=== PATIENT | female | born 2000 | race Caucasian/White ===

== ENCOUNTER → 2023-11-26 09:36 | Outpatient (BNVA) | payer BC, SELFPAY | PROVIDERS: Visit Provider Nurse Practitioner Women's Health | DX: Z34.90 Encounter for supervision of normal pregnancy, unspecified, unspecified trimester | CPT/HCPCS: 80307; 81025; 84315; 84702; 87086 ==

== ENCOUNTER → 2023-11-28 07:59 | Outpatient (BNVA) | payer BC, SELFPAY | PROVIDERS: Visit Provider Obstetrics & Gynecology | DX: Z32.01 Encounter for pregnancy test, result positive (principal) | CPT/HCPCS: 84702; 87086 ==

== ENCOUNTER → 2023-12-03 09:05 | Outpatient (BNVA) | payer OTHER, SELFPAY | PROVIDERS: Visit Provider Obstetrics & Gynecology | DX: Z36.87 Encounter for antenatal screening for uncertain dates (principal) | CPT/HCPCS: 76817 ==

== ENCOUNTER → 2023-12-31 11:01 | Outpatient (BNVA) | payer OTHER, SELFPAY | PROVIDERS: Visit Provider Obstetrics & Gynecology | DX: Z3A.01 Less than 8 weeks gestation of pregnancy (principal); Z34.90 Encounter for supervision of normal pregnancy, unspecified, unspecified trimester | CPT/HCPCS: 80307; 84315; 85025; 86592; 86762; 86803; 86850; 86900; 87086; 87340; 87491; 87591; 87806 ==

== ENCOUNTER → 2024-02-18 07:52 | Outpatient (BNVA) | payer OTHER, SELFPAY | PROVIDERS: Visit Provider Nurse Practitioner Women's Health | DX: Z3A.01 Less than 8 weeks gestation of pregnancy (principal); K21.9 Gastro-esophageal reflux disease without esophagitis; Z34.91 Encounter for supervision of normal pregnancy, unspecified, first trimester | CPT/HCPCS: 82105; 84315 ==

== ENCOUNTER → 2024-03-19 11:46 | Outpatient (BNVA) | payer OTHER, SELFPAY | PROVIDERS: Visit Provider Obstetrics & Gynecology | DX: Z34.92 Encounter for supervision of normal pregnancy, unspecified, second trimester (principal) | CPT/HCPCS: 76805 ==

== ENCOUNTER → 2024-04-29 09:31 | Outpatient (BNVA) | payer OTHER, SELFPAY | PROVIDERS: Visit Provider Obstetrics & Gynecology | DX: Z34.92 Encounter for supervision of normal pregnancy, unspecified, second trimester (principal) | CPT/HCPCS: 76816 ==

== ENCOUNTER → 2024-05-05 07:54 | Outpatient (BNVA) | payer OTHER, SELFPAY | PROVIDERS: Visit Provider Obstetrics & Gynecology | DX: Z34.90 Encounter for supervision of normal pregnancy, unspecified, unspecified trimester (principal) | CPT/HCPCS: 82950; 84315 ==

== ENCOUNTER → 2024-06-01 08:18 | Outpatient (BNVA) | payer OTHER, SELFPAY | PROVIDERS: Visit Provider Obstetrics & Gynecology | DX: Z34.93 Encounter for supervision of normal pregnancy, unspecified, third trimester (principal) | CPT/HCPCS: 81000 ==

== ENCOUNTER 2024-06-19 19:04 | Outpatient (CLI) | payer OTHER, SELFPAY ==
[2024-06-19] VITALS (10 sets, daily range): BP systolic 129–146; BP diastolic 72–80; PULSE 68–88; BMI 39.3
[2024-06-19 19:44] LABS: Bilirubin Urine Negative (Negative); Blood Urine 3+ (Negative); Glucose Urine UA Trace (Normal); Ketones Urine 1+ (Negative); Leukocyte Esterase Urine 1+ (Negative); Nitrate Urine Negative (Negative); Protein Urine 1+ (Negative); Specific Gravity, Urine 1.019 (1.005-1.030); Urine Appearance Turbid (CLEAR); Urine Color Yellow (Yellow); pH Urine 6.5 (5-7)
[2024-06-19 19:49] LABS: Bacteria Urine 4+ /hpf; RBC Urine >100 /hpf (0-2); Squamous Epithelial Cell Urine 21-50 /hpf (0-5); WBC Urine 21-50 /hpf (0-5)
[2024-06-19 20:15] LABS: Hyaline Casts Urine 7.42 /lpf
[2024-06-19 20:26] LABS: Basophils # 0.1 10^3/uL (0.0-0.1); Basophils % 0.3 %; Eosinophils % 0.1 %; Hematocrit 32.2 % (36-47); Lymphocytes # 1.9 10^3/uL (0.8-4.8); Lymphocytes % 11.7 %; Mean Corpuscular HGB Conc 31.4 g/dL (30-55); Mean Corpuscular Hemoglobin 24.8 pg (27-33); Mean Corpuscular Volume 78.9 fl (85-98); Mean Platelet Volume 11.4 fL (7.4-10.4); Monocytes % 6.3 %; Neutrophils # 12.86 10^3/uL (1.8-7.7); Neutrophils % 80.8 %; Nucleated Red Blood Cells % 0 %; Platelet Count 216 10^3/cmm (157-399); Red Blood Count 4.08 10^6/uL (3.85-5.65); Red Cell Distribution Width 13.8 % (12.1-15.1); White Blood Count 15.93 10^3/uL (3.29-11.43)
[2024-06-19] MEDS: lactated ringers 1,000 ML 125 ML IV (20:42)
[2024-06-19] MEDS: ceFAZolin 2,000 mg SDV 2000 MG IVP (20:42)
[2024-06-19] MEDS: acetaminophen 325 mg Tablet 650 MG PO (20:47)
[2024-06-19 20:49] LABS: Alanine Aminotransferase 17 U/L (0-33); Albumin Level 3.3 g/dL (3.5-5.2); Alkaline Phosphatase 193 U/L (35-105); Anion Gap 17.1 (5-19); Aspartate Amino Transferase 14 U/L (0-32); Blood Urea Nitrogen 4 mg/dL (6-20); Calcium 8.6 mg/dL (8.5-10.5); Carbon Dioxide 19 mmol/L (22-29); Chloride 103 mmol/L (98-107); Globulin 3.3 g/dL (1.3-4.6); Glomerular Filtration Rate 199.6 mL/min (90-130); Glucose 95 mg/dL (65-115); Osmolality Calculated 279 mOsm/kg (285-295); Potassium 3.1 mmol/L (3.5-5.1); Sodium 136 mmol/L (136-145); Total Bilirubin 0.3 mg/dL (0.15-1.2); Total Protein 6.6 g/dL (6.6-8.7)
[2024-06-20] MEDS: ceFAZolin 1,000 mg SDV 1000 MG IVP ×2 (00:42→06:48)
[2024-06-20 00:44] VITALS: BP 102/50; PULSE 100
[2024-06-20] MEDS: acetaminophen 325 mg Tablet 650 MG PO (04:32)
[2024-06-20] MEDS: lactated ringers 1,000 ML 125 ML IV (04:32)
--- NOTE | 2024-06-20 07:00 | USR_ITS ---
PROCEDURE INFORMATION: Exam: US Retroperitoneal, Complete, Kidneys and Bladder Exam date and time: 06/20/2024 8:32 AM Age: 23 years old Clinical indication: Abdominal pain; Flank; Right; ; Additional info: Right flank pain, possible renal stone TECHNIQUE: Imaging protocol: Real-time ultrasound of the retroperitoneum with image documentation. Complete exam focused on the bilateral kidneys and urinary bladder. COMPARISON: [place] [id number] 04/29/2024 9:35 AM FINDINGS: Right kidney: Measures 11.6 cm in length. Moderate hydronephrosis with couple ovoid hyperechoic foci at the calices suggestive of stones measuring up to 1.4 cm. Left kidney: Measures 11.8 cm in length. Mild hydronephrosis. No hyperechoic stones. Urinary bladder: Unremarkable as visualized. Aorta: Interrogated aorta shows normal caliber. Gestation: Partial visualization of intrauterine gestation with vertex presentation. US/US renal BI* [id number] IMPRESSION: 1. Moderate right hydronephrosis with couple hyperechoic foci at the calices suggestive of stones. 2. Mild left hydronephrosis without visualized hyperechoic stones.
--- NOTE | 2024-06-20 08:15 | PM.OBTRLD ---
OB L&D Triage Visit Information: Date of evaluation: 06/20/24 Comments/Additional reason(s) for visit: cramping and low back pain 23yo female at 34.6 wk IUP ROBERTO 07/26/24 OBS on LD for UTI and treated with several doses of IV(Ancef) antibiotic, after episode of vomiting. Pt c/o low back pain (Left CVA) tenderness resolved. EFM-Cat 1. Discussed need to increase fluids and to take PO Meds til gone. Evaluation: Baseline heart rate: 130 monitor accelerations: Present 15x15 monitor decelerations: None Laboratory results: Laboratory Tests 06/19/24 06/19/24 19:23 20:10 WBC 15.93 H RBC 4.08 Hgb 10.10 L Hct 32.2 L MCV 78.9 L MCH 24.8 L MCHC 31.4 RDW 13.8 Plt Count 216 MPV 11.4 H Neut % (Auto) 80.8 Lymph % (Auto) 11.7 [place] % (Auto) 6.3 Eos % (Auto) 0.1 Baso % (Auto) 0.3 Neut # (Auto) 12.86 H Lymph # (Auto) 1.9 [place] # (Auto) 1.0 H Eos # (Auto) 0.0 Baso # (Auto) 0.1 Nucleated RBC % (a uto) 0 Nucleated RBCs # 0.0 Sodium 136 Potassium 3.1 L Chloride 103 Carbon Dioxide 19 L Anion Gap 17.1 BUN 4 L Creatinine 0.4 L GFR Calculation 199.6 H Glucose 95 Calculated Osmolal ity 279 L Calcium 8.6 Total Bilirubin 0.3 AST 14 ALT 17 Alkaline Phosphata se 193 H Total Protein 6.6 Albumin 3.3 L Globulin 3.3 Urine Color Yellow Urine Appearance Turbid A Urine pH 6.5 Ur Specific Gravit y 1.019 Urine Protein 1+ A Urine Glucose (UA) Trace H Urine Ketones 1+ H Urine Blood 3+ A Urine Nitrate Negative Urine Bilirubin Negative Urine Urobilinogen 1.0 Ur Leukocyte Shivani ase 1+ A Urine RBC >100 H Urine WBC 21-50 H Ur Squamous Epith Cells 21-50 Calcium Oxalate Cr ystal 5-10 H Amorphous Sediment Not Reportable Urine Bacteria 4+ H Hyaline Casts 7.42 Vital signs: Vital Signs - 24 hr 06/19/24 19:19 06/19/24 19:34 06/19/24 19:34 Pulse Rate 83 68 Blood Pressure 134/76 129/72 Oxygen Delivery Me thod 06/19/24 19:49 06/19/24 19:49 06/19/24 20:04 Pulse Rate 82 Blood Pressure 135/75 132/72 Oxygen Delivery Me thod 06/19/24 20:04 06/19/24 20:23 06/19/24 20:23 Pulse Rate 72 82 Blood Pressure 142/80 Oxygen Delivery Me thod 06/19/24 20:40 06/19/24 20:40 06/19/24 20:53 Pulse Rate 83 Blood Pressure 133/74 139/77 Oxygen Delivery Me thod 06/19/24 20:53 06/19/24 21:09 06/19/24 21:09 Pulse Rate 88 76 Blood Pressure 146/75 Oxygen Delivery Me thod 06/19/24 21:23 06/19/24 21:23 06/19/24 21:38 Pulse Rate 85 Blood Pressure 136/73 136/74 Oxygen Delivery Me thod 06/19/24 21:38 06/19/24 21:38 06/20/24 00:44 Pulse Rate 79 100 Blood Pressure 102/50 Oxygen Delivery Me thod Room Air Care ROBERTO Calculator Estimated Delivery Date Method Current WG Current Estimate 07/26/24 Ultrasound #1 34w 6d Other Estimates 07/18/24 LMP (Uncertain) 36w 0d Final Diagnosis Final Diagnosis (1) UTI (urinary tract infection): Plan: Rx Ampicillin 500mg TID Increase PO fluids. DC to home Status: Acute Code(s): N39.0 - Urinary tract infection, site not specified (2) Rh negative status during : Status: Acute Qualifiers: Trimester: second trimester Qualified Code(s): O26.892 - Other specified related conditions, second trimester; Z67.91 - Unspecified blood type, Rh negative Code(s): O26.899 - Other specified related conditions, unspecified trimester; Z67.91 - Unspecified blood type, Rh negative Coding Level of Care Code Acute Code for Chg Fwd Diagnoses UTI (urinary tract infection) N39.0 Rh negative status during in second trimester O26.892; Z67.91 Trimester: second trimester
[2024-06-20 08:28] VITALS: BP 123/75; PULSE 82
== END 2024-06-20 09:30 | disposition home or self-care (01) ==
LOC: OPOB 19:05 → OBGYN 19:06
PROVIDERS: Visit Provider Obstetrics & Gynecology
DX: O26.892 Other specified pregnancy related conditions, second trimester (principal); Z3A.34 34 weeks gestation of pregnancy; Z67.91 Unspecified blood type, Rh negative
CPT/HCPCS: 76770; 80053; 81001; 85025; J0690; J7120

== ENCOUNTER → 2024-06-29 14:47 | Outpatient (BNVA) | payer OTHER, SELFPAY | PROVIDERS: Visit Provider Obstetrics & Gynecology | DX: Z34.90 Encounter for supervision of normal pregnancy, unspecified, unspecified trimester (principal); Z3A.01 Less than 8 weeks gestation of pregnancy | CPT/HCPCS: 84315; 87081 ==

== ENCOUNTER → 2024-07-28 10:29 | Outpatient (BNVA) | payer OTHER, SELFPAY | PROVIDERS: Visit Provider Obstetrics & Gynecology | DX: O48.0 Post-term pregnancy (principal); Z3A.39 39 weeks gestation of pregnancy | CPT/HCPCS: 76815; 76819; 84315 ==

== ENCOUNTER 2024-07-29 10:05 | Inpatient (IN) | payer OTHER, SELFPAY ==
[2024-07-29] VITALS (33 sets, daily range): BP systolic 113–156; BP diastolic 56–99; PULSE 74–125; TEMP 36.2–36.3; O2SAT 98–100; BMI 39.9
--- NOTE | 2024-07-29 10:10 | PM.OBGYHP ---
Providers/Chief Complaint Admitting Physician: Dany Stapleton MD Primary RELIEF DOCKING MASTER: Dany Stapleton MD Chief Complaint: IOL HPI RELIEF DOCKING MASTER History of Present Illness Prosper Wan is a 24 year old female SA1 EDC July 26, 2024 At 40 w 3 d No complications Admitted for induction of labor No c/o + active movements Present Details : 2 Para: 0 Labs Rubella: Immune RPR: Negative GBS: Negative Medications/Allergies Home Medications Medication Instructions Recorded Confirmed Last Taken Type [id number] 400 mcg-om3 35 mg-dha 25 1 tab PO DAILY 11/26/23 07/28/24 06/19/24 History mg-epa 5 mg-fish oil chewable tablet famotidine 20 mg tablet (Pepcid) 20 mg PO BID #60 tabs 02/18/24 07/28/24 06/19/24 Rx ondansetron HCl 4 mg tablet 4 mg PO Q8H PRN nausea and 06/23/24 07/28/24 Unknown Rx vomiting #30 tabs Allergies Allergy/AdvReac Type Severity Reaction Status Date / Time No Known Allergies Allergy Verified 07/28/24 09:32 PFSH RELIEF DOCKING MASTER PFSH: Family History Grandmother Breast cancer Colon cancer Uterine cancer Heart disease Hypertension Stroke Mother Heart disease Hypertension Diabetes Father Heart disease Hypertension Social History Smoking and tobacco/nicotine status: never used tobacco/nicotine History History History 2 Term 0 0 Miscarriages/Ectopic 1 Living Children 0 Care ROBERTO Calculator Estimated Delivery Date Method Current WG Current Estimate 07/26/24 Ultrasound #1 40w 4d Other Estimates 07/18/24 LMP (Uncertain) 41w 5d Vitals/I&O/Wt Last Vital Signs Temp 97.2 F L 07/29/24 20:12 Pulse 72 07/30/24 06:57 BP 113/59 07/30/24 06:57 Pulse Ox 99 07/29/24 23:22 O2 Del Method Room Air 07/29/24 11:16 07/29/24 07/30/24 07/30/24 22:59 06:59 14:59 Intake Total 1000 / 1000 2130.700 / 3130.700 Balance 1000 / 1000 2130.700 / 3130.700 Weight last 48 hrs Weight 232 lb 8 oz Physical Exam Narrative: Weight 240 lbs; VS normal General comfortable, awake, alert Lungs clear Cor: RRR FH 38 cm; cephalic Cervix: 1 cm / 0% / -3 Ext: no edema External monitor: heart tracing good variability, + accelerations Urinary Catheter Management: Mohr Latex: Cath Placed During This Visit: yes Urinary Catheter Date of Insertion: 07/29/24 Urinary Catheter Time of Insertion: 23:39 Data 07/29/24 10:35 Results Labs OB ([facility]): Obstetrics US 04/29/24 Obstetrics US/Biophysical Profile 07/28/24 Blood Type B Negative 07/29/24 Antibody Screen Negative 07/29/24 Hct 32.3 % (36-47) L 07/29/24 Hgb 9.80 g/dL (11.27-16.99) L 07/29/24 Rho(D) Type Rh negative 07/29/24 Plt Count 207 10^3/cmm (157-399) 07/29/24 Hep Bs Antigen Non-reactive (Nonreactive) 12/31/23 Hepatitis C Antibody Non-reactive (Nonreactive) 12/31/23 Rubella IgG Antibody 119.4 IU/mL (0.0-10.0) H 12/31/23 RPR Nonreactive (Nonreactive) 12/31/23 HIV 1&2 Ab & HIV 1 Ag Non-reactive (Non-Reactiv) 12/31/23 C.trachomatis RNA (TMA) Not detected (NOT DETECTED) 12/31/23 N.gonorrhoeae RNA (TMA) Not detected (NOT DETECTED) 12/31/23 Chlamydia/GC Comment See note 12/31/23 Glucose 1 Hr 50 gm 127 mg/dL (85-140) 05/05/24 Ser , Semi-Qnt 92009.00 mIU/mL 11/28/23 HCG, Qual Positive (Negative) H 11/26/23 Urine Opiates Screen Negative ng/mL (Negative) 12/31/23 Ur Barbiturates Screen Negative ng/mL (Negative) 12/31/23 Ur Phencyclidine Scrn Negative ng/mL (Negative) 12/31/23 Ur Amphetamines Screen Negative ng/mL (Negative) 12/31/23 U Benzodiazepines Scrn Negative ng/mL (Negative) 12/31/23 Urine Cocaine Screen Negative ng/mL (Negative) 12/31/23 U Marijuana (THC) Screen Negative ng/mL (Negative) 12/31/23 Micro Urine Specimen 12/31/23 A&P Assessment and plan (1) : Term 40 w 3 d Admitted for induction of labor Plan Cytotec 25 ug intravaginal Qualifiers: Weeks of gestation: less than 8 weeks Qualified Code(s): Z3A.01 - Less than 8 weeks gestation of Attestations Medical Necessity Statement*: patient at 40 w 3 d, admitted for induction of labor Coding Level of Care Code Acute Code for Chg Fwd Diagnoses Less than 8 weeks gestation of Z3A.01 Weeks of gestation: less than 8 weeks Time Spent (min) 30
[2024-07-29 10:52] LABS: Basophils % 0.3 %; Eosinophils % 0.2 %; Hematocrit 32.3 % (36-47); Lymphocytes # 1.8 10^3/uL (0.8-4.8); Lymphocytes % 14.9 %; Mean Corpuscular HGB Conc 30.3 g/dL (30-55); Mean Corpuscular Hemoglobin 23.4 pg (27-33); Mean Corpuscular Volume 77.3 fl (85-98); Mean Platelet Volume 11.7 fL (7.4-10.4); Monocytes # 0.8 10^3/uL (0.2-0.9); Monocytes % 6.1 %; Neutrophils # 9.62 10^3/uL (1.8-7.7); Neutrophils % 77.9 %; Nucleated Red Blood Cells % 0 %; Platelet Count 207 10^3/cmm (157-399); Red Blood Count 4.18 10^6/uL (3.85-5.65); Red Cell Distribution Width 15.4 % (12.1-15.1); White Blood Count 12.36 10^3/uL (3.29-11.43)
[2024-07-29] MEDS: miSOPROStol 100 mcg tablet 25 MCG VAGINAL ×2 (14:03→18:39)
[2024-07-29] MEDS: acetaminophen 325 mg Tablet 650 MG PO (19:22)
--- NOTE | 2024-07-29 21:05 | PM.OBGYPN ---
GRADUATE TEACHING ASSOCIATE Subjective Subjective: Interval history: Fetus reassuring Cervix: 2 cm / 75% / -2 / posterior Received two doses of Cytotec 25 ug intravaginal Plan start Pitocin per protocol Labor: Station: -2 Amniotic Membrane Status: Ruptured Monitor Mode: Internal (IUPC) Contraction Pattern: Regular Vitals/I&O/Wt Last Vital Signs Temp 97.2 F L 07/29/24 20:12 Pulse 72 07/30/24 06:57 BP 113/59 07/30/24 06:57 Pulse Ox 99 07/29/24 23:22 O2 Del Method Room Air 07/29/24 11:16 07/29/24 07/30/24 07/30/24 22:59 06:59 14:59 Intake Total 1000 / 1000 2130.700 / 3130.700 Balance 1000 / 1000 2130.700 / 3130.700 Weight last 48 hrs Weight 232 lb 8 oz Physical Exam Urinary Catheter Management: Mohr Latex: Cath Placed During This Visit: yes Urinary Catheter Date of Insertion: 07/29/24 Urinary Catheter Time of Insertion: 23:39 Data 07/29/24 10:35 A&P Assessment and plan (1) : Qualifiers: Weeks of gestation: less than 8 weeks Qualified Code(s): Z3A.01 - Less than 8 weeks gestation of Attestations Medical Necessity Statement*: patient at 40 w 3 d, admitted for induction of labor Coding Level of Care Code Acute Code for Chg Fwd Diagnoses Less than 8 weeks gestation of Z3A.01 Weeks of gestation: less than 8 weeks Time Spent (min) 20
[2024-07-29] MEDS: lactated ringers 1,000 ML 999 ML IV ×2 (21:30→22:41)
--- NOTE | 2024-07-29 22:36 | P.ANESASSM_ITS ---
Pre-Anesthetic Assessment Height/Weight: Height 1.63 m Weight 105.46 kg Temp Pulse BP O2 Del Method 97.2 F L 79 156/93 Room Air 07/29/24 20:12 07/29/24 21:51 07/29/24 21:51 07/29/24 11:16 Preop Diagnosis: labor pain epidural Was Beta John taken within 24 hours: N/A Was Clonidine taken within 24 hours: N/A Exam alert, oriented x 3, clear to auscultation bilaterally and regular rate & rhythm Airway Submandibular: within normal limits Cervical ROM: within normal limits Mallampati: Class II Dentition: full Pulmonary None reported CV/HEM None reported stones recently Hepatic None reported GI Gastroesophageal Reflux Disease Metabolic None reported Musc/skel None reported Neuropsych None reported Anesthetic Plan ASA status: 2 Anesthesia: Regional (specify below) Risk of > 500 ml blood loss (7ml/kg in children): No Medications/Allergies Home Medications Medication Instructions Recorded Confirmed Last Taken Type [id number] 400 mcg-om3 35 mg-dha 25 1 tab PO DAILY 11/26/23 07/28/24 06/19/24 History mg-epa 5 mg-fish oil chewable tablet famotidine 20 mg tablet (Pepcid) 20 mg PO BID #60 tabs 02/18/24 07/28/24 06/19/24 Rx ondansetron HCl 4 mg tablet 4 mg PO Q8H PRN nausea and 06/23/24 07/28/24 Unknown Rx vomiting #30 tabs Allergies Allergy/AdvReac Type Severity Reaction Status Date / Time No Known Allergies Allergy Verified 07/28/24 09:32 Current Medications Generic Name Dose Route Start Last Admin Trade Name Romeroq PRN Reason Stop Dose Admin Acetaminophen 650 mg 07/29/24 10:37 07/29/24 19:22 Acetaminophen 325 Mg Tablet PO 650 mg Q6H PRN Administration Mild pain or temp > 100.4 Dextrose/Lactated Ringer's 1,000 mls @ 125 mls/hr 07/29/24 10:45 07/29/24 13:49 Dextrose 5%-Lactated Ringers IV Not Given .Q8H AZALIA PFSH Anesthesia Family History Grandmother Breast cancer Colon cancer Uterine cancer Heart disease Hypertension Stroke Mother Heart disease Hypertension Diabetes Father Heart disease Hypertension Social History Smoking and tobacco/nicotine status: never used tobacco/nicotine Female Reproductive History : 2 Data Anesthesia 07/29/24 10:35 Short CBC 07/29/24 Range/Units 10:35 WBC 12.36 H (3.29-11.43) 10^3/uL Hgb 9.80 L (11.27-16.99) g/dL Hct 32.3 L (36-47) % MCV 77.3 L (85-98) fl Plt Count 207 (157-399) 10^3/cmm Neut % (Auto) 77.9 % Neut # (Auto) 9.62 H (1.8-7.7) 10^3/uL Blood Bank 07/29/24 10:35 Blood Type B Negative Rho(D) Type Rh negative Antibody Screen Negative Cardiac Studies: 2 No Data to Display
[2024-07-29] MEDS: ROPivacaine syringe 100 MG/50 ML SYRINGE 13 MG EPIDURAL (22:52)
--- NOTE | 2024-07-29 22:57 | P.ANES_ITS ---
Anesthesia Procedures Procedure/Date: 07/29/24 epidural Procedure Narrative: epidural complete, bolus given, epidural pump initiated with FRONT END LOADER DRIVER education given, vitals taken during procedure and satisfactory throughout, patient admits to decrease pain, report of procedure to OB RN Epidural: Time Out Performed: Yes Consents Signed: Procedure Consent Consent: requested by attending/covering physician, from patient, risks and benefits reviewed and patient agrees to proceed Lumbar Level: L3-L4 Ep idural position: sitting Epidural procedure: sterile prep of area, 1% lidocaine to numb the area (3 mL), 18 g needle, negative for paresthesia passed, neg for paresthesia, test dose given, 1.5% xylocaine 1:200k epi (5 mL), 0.2% Ropivacaine bolus ml (5 mL), placed PCEA, no systemic response, sterile dressing applied, L.U.D. no apparent complications and 0.2% Ropiavacaine @ mls/hr (13 mL/hr)
[2024-07-29] MEDS: dextrose 5%-lactated ringers 1,000 ML 125 ML IV (23:42)
[2024-07-30] VITALS (71 sets, daily range): BP systolic 105–153; BP diastolic 55–97; PULSE 65–136; RESP 14–16; TEMP 36.1–36.7; O2SAT 98
[2024-07-30] MEDS: oxytocin 30 UNIT/500 ML BAG IV (01:00)
[2024-07-30] MEDS: ROPivacaine syringe 100 MG/50 ML SYRINGE 13 MG EPIDURAL ×4 (02:10→11:00)
--- NOTE | 2024-07-30 03:50 | P.PN_ITS ---
INSTRUCTOR ADJUNCT SURGICAL TECHNICIAN Subjective 2 Subjective: Interval history: Fetus reassuring Comfortable with epidural Cervix: 3 cm / 75% / -2 / posterior AROM, clear fluid IUPC, FSE placed Continue pitocin Labor: Station: -2 Amniotic Membrane Status: Ruptured Monitor Mode: Internal (IUPC) Contraction Pattern: Regular Vitals/I&O/Wt Last Vital Signs Temp 97.2 F L 07/29/24 20:12 Pulse 72 07/30/24 06:57 BP 113/59 07/30/24 06:57 Pulse Ox 99 07/29/24 23:22 O2 Del Method Room Air 07/29/24 11:16 07/29/24 07/30/24 07/30/24 22:59 06:59 14:59 Intake Total 1000 / 1000 2130.700 / 3130.700 Balance 1000 / 1000 2130.700 / 3130.700 Weight last 48 hrs Weight 232 lb 8 oz Physical Exam 2 Urinary Catheter Management: Mohr Latex: Cath Placed During This Visit: yes Urinary Catheter Date of Insertion: 07/29/24 Urinary Catheter Time of Insertion: 23:39 Data 07/29/24 10:35 A&P Assessment and plan (1) : Qualifiers: Weeks of gestation: less than 8 weeks Qualified Code(s): Z3A.01 - Less than 8 weeks gestation of Attestations 2 Medical Necessity Statement*: patient at 40 w 4 d, admitted for induction of labor Coding Level of Care Code Acute Code for Chg Fwd Diagnoses Less than 8 weeks gestation of Z3A.01 Weeks of gestation: less than 8 weeks Time Spent (min) 30
[2024-07-30] MEDS: dextrose 5%-lactated ringers 1,000 ML 125 ML IV ×2 (05:18→08:58)
[2024-07-30] MEDS: ondansetron 2 mg/ML SDV 2 mL 4 MG IVP (06:40)
[2024-07-30] MEDS: lactated ringers 1,000 ML 999 ML IV (07:51)
[2024-07-30] MEDS: lidocaine 2% INJ 20 mL INJECTION (12:16)
--- NOTE | 2024-07-30 12:35 | PM.DELIVERY ---
Delivery Note: Date of delivery: July 30, 2024 Pre-delivery diagnoses: 40 w 3 d induction of labor Post-delivery diagnoses: 40 w 3 d induction of labor vaginal delivery second-degree perineal laceration repair Procedure: induction of labor vaginal delivery second-degree perineal laceration repair Op report anesthesia: Epidural Delivering Physician: Dany Stapleton MD Estimated blood loss (mL): 300 Findings: , vigorous male Cord gases and blood obtained Normal placenta and cord Second-degree perineal laceration repaired EBL: 300 cc No complications Pre-Delivery Course: normal labor course Delivery: vaginal Post-Delivery Status: good History History History 2 Term 0 0 Miscarriages/Ectopic 1 Living Children 0 A&P Assessment and plan (1) Vaginal delivery: Coding Level of Care Code Acute Code for Chg Fwd Diagnoses Vaginal delivery O80 Time Spent (min) 60
[2024-07-30] MEDS: lanolin oint 7 gm 1 APPLIC TOPICAL (14:29)
[2024-07-30] MEDS: ibuprofen 800 mg tablet PO ×2 (14:29→20:12)
[2024-07-30] MEDS: benzocaine-menthol 78 gm Canister 1 SPRAY TOPICAL (14:30)
--- NOTE | 2024-07-30 16:00 | ANE.PACU2 ---
Inpatient post-anesthesia follow up: Airway intact: Yes Vital signs: Temperature 98.4 F Pulse Rate 109 Respiratory Rate 18 Blood Pressure 129/82 Pulse Oximetry 99 Oxygen Delivery Me thod Room Air Oxygen Flow Rate Fraction of Inspir ed Oxygen Hydration adequate: Yes Nausea and vomiting: No Pain level: 1 Mental status: Baseline Epidural Start/End: Epidural Start Date: 07/29/24 Epidural Start Time: 22:43 Epidural End Date: 07/30/24 Epidural End Time: 15:25
[2024-07-30] MEDS: docusate sodium 100 mg Capsule PO (18:00)
--- NOTE | 2024-07-30 18:16 | PC.NURSE ---
Pt up to bathroom, then ambulated to OB 7 for routine post care. Oriented to room/call light. Proud parent pack and feeding log discussed.
[2024-07-30] MEDS: HYDROcodone-acetaminophen 5-325 mg Tablet PO (22:21)
[2024-07-31 00:54] LABS: Hematocrit 25.6 % (36-47); Mean Corpuscular HGB Conc 30.9 g/dL (30-55); Mean Corpuscular Hemoglobin 23.9 pg (27-33); Mean Corpuscular Volume 77.3 fl (85-98); Mean Platelet Volume 11.4 fL (7.4-10.4); Platelet Count 147 10^3/cmm (157-399); Red Blood Count 3.31 10^6/uL (3.85-5.65); Red Cell Distribution Width 15.5 % (12.1-15.1); White Blood Count 12.91 10^3/uL (3.29-11.43)
[2024-07-31 04:00] VITALS: BP 104/59; PULSE 87; RESP 14; TEMP 36.8; O2SAT 99
[2024-07-31] MEDS: HYDROcodone-acetaminophen 5-325 mg Tablet PO (05:04)
[2024-07-31] MEDS: docusate sodium 100 mg Capsule PO (08:53)
[2024-07-31] MEDS: PRENATAL VIT NO.130/IRON/FOLIC 1 EACH TABLET PO (08:54)
[2024-07-31] MEDS: ibuprofen 800 mg tablet PO ×2 (08:54→14:55)
[2024-07-31 10:00] VITALS: BP 119/81; PULSE 80; RESP 16; TEMP 36.4
[2024-07-31 15:00] VITALS: BP 129/82; PULSE 109; RESP 18; TEMP 36.9
--- NOTE | 2024-07-31 15:03 | P.DS_ITS ---
Discharge Providers FRATERNITY ADVISER Date of Admission: 07/29/24 10:05 Date of Discharge: 07/31/24 Attending Provider at Admission: Dany Stapleton MD Attending Provider at Discharge: Dany Stapleton MD Consults: none Primary FRATERNITY ADVISER: Dany Stapleton MD Diagnoses at Discharge Discharge Diagnosis (1) Vaginal delivery: Details from hospital stay: 24 y.o. SA1 at 40 w 3 d no complications admitted for induction of labor patient received two doses of intravaginal cytotec 25 ug, followed by pitocin per protocol fetus was reassuring throughout progressed to vaginal delivery with repair of second-degree perineal lacerations without any complications patient had an uneventful course and was discharged to home on the first day Status: Inactive Reason for Visit Reason for Visit: IOL Brief History: 24 y.o. SA1 at 40 w 3 d no complications admitted for induction of labor Hospital Course Hospital Course 24 y.o. SA1 at 40 w 3 d no complications admitted for induction of labor patient received two doses of intravaginal cytotec 25 ug, followed by pitocin per protocol fetus was reassuring throughout progressed to vaginal delivery with repair of second-degree perineal lacerations without any complications patient had an uneventful course and was discharged to home on the first day Information Peripartum Data: Delivery Method: Vaginal Laceration description: Perineal - 2nd Degree Episiotomy description: None complic ations: none Physical Exam Narrative: afebrile, VS normal comfortable, awake, alert Abd: soft, nontender. fundus firm Ext: no edema; nontender Urinary Catheter Management: Mohr Latex: Cath Placed During This Visit: yes, but has since been removed by the nurse Reason for Continuing Indwelling Catheter: Decision to DC Catheter Urinary Catheter Date of Insertion: 07/29/24 Urinary Catheter Time of Insertion: 23:39 Date Urinary Catheter Removed: 07/30/24 Time Urinary Catheter Discontinued: 11:50 History History History 2 Term 0 0 Miscarriages/Ectopic 1 Living Children 0 Discharge Data Studies Completed and Pending Laboratory Results WBC 12.91 10^3/uL (3.29-11.43) H 07/31/24 00:30 RBC 3.31 10^6/uL (3.85-5.65) L 07/31/24 00:30 Hgb 7.90 g/dL (11.27-16.99) L 07/31/24 00:30 Hct 25.6 % (36-47) L 07/31/24 00:30 MCV 77.3 fl (85-98) L 07/31/24 00:30 MCH 23.9 pg (27-33) L 07/31/24 00:30 MCHC 30.9 g/dL (30-55) 07/31/24 00:30 RDW 15.5 % (12.1-15.1) H 07/31/24 00:30 Plt Count 147 10^3/cmm (157-399) L 07/31/24 00:30 MPV 11.4 fL (7.4-10.4) H 07/31/24 00:30 Neut % (Auto) 77.9 % 07/29/24 10:35 Lymph % (Auto) 14.9 % 07/29/24 10:35 [place] % (Auto) 6.1 % 07/29/24 10:35 Eos % (Auto) 0.2 % 07/29/24 10:35 Baso % (Auto) 0.3 % 07/29/24 10:35 Neut # (Auto) 9.62 10^3/uL (1.8-7.7) H 07/29/24 10:35 Lymph # (Auto) 1.8 10^3/uL (0.8-4.8) 07/29/24 10:35 [place] # (Auto) 0.8 10^3/uL (0.2-0.9) 07/29/24 10:35 Eos # (Auto) 0.0 10^3/uL (0.0-0.8) 07/29/24 10:35 Baso # (Auto) 0.0 10^3/uL (0.0-0.1) 07/29/24 10:35 Nucleated RBC % (auto) 0 % 07/29/24 10:35 Nucleated RBCs # 0.0 /100WBC 07/29/24 10:35 Blood Type B Negative 07/29/24 10:35 Rho(D) Type Rh negative 07/29/24 10:35 Antibody Screen Negative 07/29/24 10:35 Procedures Performed induction of labor vaginal delivery repair of second-degree perineal laceration Vitals Last Vital Signs Temp 98.4 F 07/31/24 16:45 Pulse 109 H 07/31/24 16:45 Resp 18 07/31/24 16:45 BP 129/82 07/31/24 16:45 Pulse Ox 99 07/31/24 04:00 O2 Del Method Room Air 07/31/24 04:00 Results Labs OB ([facility]): Obstetrics US 04/29/24 Obstetrics US/Biophysical Profile Blood Type B Negative 07/29/24 Antibody Screen Negative 07/29/24 Hct 25.6 % (36-47) L 07/31/24 Hgb 7.90 g/dL (11.27-16.99) L 07/31/24 Rho(D) Type Rh negative 07/29/24 Plt Count 147 10^3/cmm (157-399) L 07/31/24 Hep Bs Antigen Non-reactive (Nonreactive) 12/31/23 Hepatitis C Antibody Non-reactive (Nonreactive) 12/31/23 Rubella IgG Antibody 119.4 IU/mL (0.0-10.0) H 12/31/23 RPR Nonreactive (Nonreactive) 12/31/23 HIV 1&2 Ab & HIV 1 Ag Non-reactive (Non-Reactiv) 12/31/23 C.trachomatis RNA (TMA) Not detected (NOT DETECTED) N.gonorrhoeae RNA (TMA) Not detected (NOT DETECTED) Chlamydia/GC Comment See note 12/31/23 Glucose 1 Hr 50 gm 127 mg/dL (85-140) 05/05/24 Ser , Semi-Qnt 25819.00 mIU/mL 11/28/23 HCG, Qual Positive (Negative) H 11/26/23 Urine Opiates Screen Negative ng/mL (Negative) 12/31/23 Ur Barbiturates Screen Negative ng/mL (Negative) 12/31/23 Ur Phencyclidine Scrn Negative ng/mL (Negative) 12/31/23 Ur Amphetamines Screen Negative ng/mL (Negative) 12/31/23 U Benzodiazepines Scrn Negative ng/mL (Negative) 12/31/23 Urine Cocaine Screen Negative ng/mL (Negative) 12/31/23 U Marijuana (THC) Screen Negative ng/mL (Negative) 12/31/23 Micro Urine Specimen 12/31/23 Discharge Plan Discharge Patient Disposition: Home Condition: Stable Prescriptions: New Percocet 5-325 mg tablet 1 tab PO BID PRN (Reason: pain) Qty: 14 0RF Continued [id number]-[id number]-[id number]-tdpc oil 400 mcg-35 mg -25 mg-5 mg tablet,chewable 1 tab PO DAILY famotidine [Pepcid] 20 mg tablet 20 mg PO BID Qty: 60 2RF ondansetron HCl 4 mg tablet 4 mg PO Q8H PRN (Reason: nausea and vomiting) Qty: 30 2RF Discharge Orders: Discharge Order (Routine); Ordered 07/31/24 Ordered By: Dany Stapleton Referrals: Dany Stapleton MD [Physician] - (6 WEEK FOLLOW UP APPOINTMENT WITH JOS VALVERDE NP ON August AT 1PM.) Discharge Diet: Usual diet Discharge Activity: Increase activity as tolerated Patient Instructions: Depression (DC), Opioid Safety (DC), Preeclampsia and Eclampsia After Delivery (GEN), Hemorrhage (DC), OB Discharge Report, OB Food/Drug Interaction Guide, Opioid Safety, OB Home Care, OB Vaginal Deliveries - [facility], Abnormal Bleeding Discharge Attestations FRATERNITY ADVISER Time Spent in Discharge Care*: less than 30 min Coding Level of Care Code Acute Code for Chg Fwd Diagnoses Vaginal delivery O80 Time Spent (min) 20
[2024-07-31 16:45] VITALS: BP 129/82; PULSE 109; RESP 18; TEMP 36.9
== END 2024-07-31 16:40 | disposition home or self-care (01) | DRG 807 ==
LOC: OPOB 10:05 → OBGYN 10:05
PROVIDERS: Admitting Provider Obstetrics & Gynecology; Visit Provider Obstetrics & Gynecology
DX: O48.0 Post-term pregnancy (principal); Z37.0 Single live birth; Z3A.40 40 weeks gestation of pregnancy; O70.1 Second degree perineal laceration during delivery
CPT/HCPCS: 36415; 51702; 59025; 59409; 85025; 85027; 86850; 86900; 96374; J2405; J2590; J2795; J7120; J7121

== ENCOUNTER → 2024-12-10 08:48 | Outpatient (BNVA) | payer OTHER, SELFPAY | PROVIDERS: Visit Provider Nurse Practitioner Women's Health | DX: N92.6 Irregular menstruation, unspecified (principal) | CPT/HCPCS: 81025 ==

== ENCOUNTER → 2024-12-16 09:25 | Outpatient (BNVA) | payer OTHER, SELFPAY | PROVIDERS: Visit Provider Nurse Practitioner Women's Health | DX: Z36.9 Encounter for antenatal screening, unspecified (principal) | CPT/HCPCS: 76801 ==

== ENCOUNTER → 2025-01-07 12:17 | Outpatient (BNVA) | payer OTHER, SELFPAY | PROVIDERS: Visit Provider Nurse Practitioner Women's Health | DX: O20.8 Other hemorrhage in early pregnancy (principal) | CPT/HCPCS: 76801 ==

== ENCOUNTER → 2025-01-13 07:44 | Outpatient (BNVA) | payer OTHER, SELFPAY | PROVIDERS: Visit Provider Nurse Practitioner Women's Health | DX: Z34.91 Encounter for supervision of normal pregnancy, unspecified, first trimester (principal) | CPT/HCPCS: 80307; 84315; 84443; 85025; 86592; 86762; 86803; 86850; 86900; 87086; 87340; 87491; 87591; 87661; 87806 ==

== ENCOUNTER → 2025-02-24 08:25 | Outpatient (BNVA) | payer OTHER, SELFPAY | PROVIDERS: Visit Provider Nurse Practitioner Women's Health | DX: Z34.90 Encounter for supervision of normal pregnancy, unspecified, unspecified trimester (principal) | CPT/HCPCS: 82105; 84315 ==

== ENCOUNTER → 2025-03-25 09:04 | Outpatient (BNVA) | payer OTHER, SELFPAY | PROVIDERS: Visit Provider Obstetrics & Gynecology | DX: Z36.9 Encounter for antenatal screening, unspecified (principal) | CPT/HCPCS: 76805 ==

== ENCOUNTER → 2025-04-01 08:02 | Outpatient (BNVA) | payer OTHER, SELFPAY | PROVIDERS: Visit Provider Obstetrics & Gynecology | DX: Z34.90 Encounter for supervision of normal pregnancy, unspecified, unspecified trimester (principal) | CPT/HCPCS: 84315 ==

== ENCOUNTER → 2025-04-21 08:29 | Outpatient (BNVA) | payer OTHER, SELFPAY | PROVIDERS: Visit Provider Nurse Practitioner Women's Health | DX: Z34.90 Encounter for supervision of normal pregnancy, unspecified, unspecified trimester (principal); Z67.91 Unspecified blood type, Rh negative | CPT/HCPCS: 84315; 85025 ==

== ENCOUNTER → 2025-05-25 10:30 | Outpatient (BNVA) | payer OTHER, SELFPAY | PROVIDERS: Visit Provider Obstetrics & Gynecology | DX: Z36.9 Encounter for antenatal screening, unspecified (principal) | CPT/HCPCS: 76816 ==

== ENCOUNTER → 2025-05-27 14:19 | Outpatient (BNVA) | payer OTHER, SELFPAY | PROVIDERS: Visit Provider Obstetrics & Gynecology | DX: O44.42 Low lying placenta NOS or without hemorrhage, second trimester (principal) | CPT/HCPCS: 82950; 84315; 85025; 86850 ==

== ENCOUNTER → 2025-06-03 08:02 | Outpatient (BNVA) | payer OTHER, SELFPAY | PROVIDERS: Visit Provider Nurse Practitioner Women's Health | DX: Z34.90 Encounter for supervision of normal pregnancy, unspecified, unspecified trimester (principal) | CPT/HCPCS: 84315 ==

== ENCOUNTER → 2025-07-01 10:33 | Outpatient (BNVA) | payer OTHER, SELFPAY | PROVIDERS: Visit Provider Nurse Practitioner Women's Health | DX: Z34.83 Encounter for supervision of other normal pregnancy, third trimester (principal) | CPT/HCPCS: 76816; 76817; 84315; 87624 ==

== ENCOUNTER 2025-07-07 16:00 | Outpatient (CLI) | payer OTHER, SELFPAY ==
[2025-07-07 16:10] VITALS: BMI 38.0
[2025-07-07 16:17] VITALS: BP 144/96; PULSE 116
[2025-07-07 16:32] VITALS: BP 139/85; PULSE 96
[2025-07-07 16:47] VITALS: BP 127/74; PULSE 88
[2025-07-07 17:02] VITALS: BP 131/84; PULSE 92
== END 2025-07-07 17:08 | disposition home or self-care (01) ==
LOC: OPOB 16:05 → OBGYN 16:06
PROVIDERS: Visit Provider Obstetrics & Gynecology
DX: O26.899 Other specified pregnancy related conditions, unspecified trimester (principal); Z3A.00 Weeks of gestation of pregnancy not specified; N89.8 Other specified noninflammatory disorders of vagina
CPT/HCPCS: 59025; 83986; 99211

== ENCOUNTER → 2025-07-15 08:23 | Outpatient (BNVA) | payer OTHER, SELFPAY | PROVIDERS: Visit Provider Nurse Practitioner Women's Health | DX: Z34.90 Encounter for supervision of normal pregnancy, unspecified, unspecified trimester (principal) | CPT/HCPCS: 84315; 87081 ==

== ENCOUNTER → 2025-07-21 09:17 | Outpatient (BNVA) | payer OTHER, SELFPAY | PROVIDERS: Visit Provider Obstetrics & Gynecology | DX: Z34.90 Encounter for supervision of normal pregnancy, unspecified, unspecified trimester (principal) | CPT/HCPCS: 84315 ==

== ENCOUNTER → 2025-07-29 09:09 | Outpatient (BNVA) | payer OTHER, SELFPAY | PROVIDERS: Visit Provider Obstetrics & Gynecology | DX: Z34.90 Encounter for supervision of normal pregnancy, unspecified, unspecified trimester (principal) | CPT/HCPCS: 84315 ==

== ENCOUNTER → 2025-08-05 08:07 | Outpatient (BNVA) | payer OTHER, SELFPAY | PROVIDERS: Visit Provider Nurse Practitioner Women's Health | DX: Z34.83 Encounter for supervision of other normal pregnancy, third trimester (principal) | CPT/HCPCS: 84315 ==

== ENCOUNTER 2025-08-10 12:59 | Outpatient (CLI) | payer OTHER, SELFPAY ==
[2025-08-10 12:55] VITALS: BMI 38.3
[2025-08-10 13:24] VITALS: BP 126/78; PULSE 110
[2025-08-10 13:39] VITALS: BP 125/72; PULSE 100
[2025-08-10 14:55] VITALS: BP 121/73; PULSE 97
[2025-08-10 15:23] VITALS: RESP 18
== END 2025-08-10 15:30 | disposition home or self-care (01) ==
LOC: OPOB 12:59 → OBGYN 13:00
PROVIDERS: Visit Provider Family Medicine
DX: O26.899 Other specified pregnancy related conditions, unspecified trimester (principal); Z3A.00 Weeks of gestation of pregnancy not specified; M54.9 Dorsalgia, unspecified
CPT/HCPCS: 59025; 99211

== ENCOUNTER 2025-08-11 11:35 | Inpatient (IN) | payer OTHER, SELFPAY ==
[2025-08-11] VITALS (79 sets, daily range): BP systolic 113–183; BP diastolic 56–91; PULSE 64–136; RESP 16–18; TEMP 36.1; O2SAT 91–100; BMI 38.2
--- NOTE | 2025-08-11 12:05 | P.HP_ITS ---
Providers/Chief Complaint 2 Admitting Physician: Dany Stapleton MD Primary DISTRIBUTION CENTER ADMINISTRATOR: Dany Stapleton MD Chief Complaint: IOL HPI DISTRIBUTION CENTER ADMINISTRATOR History of Present Illness Prosper Wan is a 25 year old female A1 EDC August 11, 2025 At 40 w 0 d No complications Admitted for elective induction of labor No c/o + active movements Present Details : 3 Para: 1 Labs Rubella: Immune RPR: Negative GBS: Negative Medications/Allergies Home Medications ?Medication ?Instructions ?Recorded ?Confirmed ?Last Taken ?Type docosahexaenoic acid 200 mg 1 mg PO DAILY 12/10/2412/05 Unknown History capsule ( DHA) ferrous sulfate 325 mg (65 mg 325 mg PO DAILY 06/03/25 08/11/25 Unknown History iron) tablet calcium carbonate (Tums) 200 mg PO BID PRN Heartburn 07/15/25 08/11/25 Unknown History famotidine 20 mg tablet (Pepcid) 20 mg PO DAILY 08/11/25 Unknown History ondansetron 4 mg disintegrating 4 mg PO Q8H PRN Nausea 07/21/25 08/11/25 Unknown History tablet bromocriptine 5 mg capsule 5 mg PO BID #20 caps Unknown Rx oxycodone-acetaminophen 5 mg-325 1 tab PO Q12H PRN renan n #14 tabs 08/13/25 Unknown Rx mg tablet (Percocet) Allergies Allergy/AdvReac Type Severity Reaction Status Date / Time No Known Allergies Allergy Verified 08/05/25 08:13 PFSH DISTRIBUTION CENTER ADMINISTRATOR 2 PFSH: Medical History (Updated 08/12/25 @ 09:08 by Dany Stapleton MD) Vaginal delivery Family History Grandmother Breast cancer Colon cancer Uterine cancer Heart disease Hypertension Stroke Mother Heart disease Hypertension Diabetes Father Heart disease Hypertension Social History Smoking and tobacco/nicotine status: never used tobacco/nicotine History History History 2 3 Term 1 0 Miscarriages/Ectopic 1 Living Children 1 Past Pregnancies Del. Date GA/Weeks Outcome Route Wt Inf Gender Labor Lgth Comp. Anesth esia Location 07/30/24 40 live - full term Vaginal 7 lb 10 oz Male [facility] Delivery Date: 07/30/24 Last Updated by: DOTTY Hanks Dr. Care ROBERTO Calculator 2 Estimated Delivery Date Method Current WG Current Estimate 08/11/25 Ultrasound #1 42w 4d Other Estimates 06/30/25 LMP (Uncertain) 48w 4d Specific Issues/Plans * * NAUSEA AND VOMITING: taking reglan daily and zofran as needed * LOW LYING PLACENTA: resolved as of u/s on 05/25/25 * RH NEGATIVE: rhogam given * ANEMIA: started on ferrous sulfate 325 daily Vitals/I&O/Wt Last Vital Signs Temp 98.4 F 08/13/25 10:00 Pulse 83 08/13/25 10:00 Resp 16 08/13/25 10:00 BP 107/69 08/13/25 10:00 Pulse Ox 98 08/13/25 10:00 O2 Del Method Room Air 08/13/25 09:46 Physical Exam 2 Narrative: Weight 223 lbs; 5?4? BP 137 / 73 General awake, alert Lungs: clear Cor: RRR Abd: nontender Cervix: 1-2 cm / 50 / -3 / cephalic Ext: no edema External monitor: heart tracing good variability, + accelerations Urinary Catheter Management: Mohr Latex: Cath Placed During This Visit: yes, but has since been removed by the nurse Reason for Continuing Indwelling Catheter: Decision to DC Catheter Urinary Catheter Date of Insertion: 08/11/25 Urinary Catheter Time of Insertion: 22:06 Date Urinary Catheter Removed: 08/11/25 Time Urinary Catheter Discontinued: 22:14 Data 08/12/25 11:00 Results Labs OB ([facility]): 2 Obstetrics US 07/01/25 Obstetrics US/Biophysical Profile Blood Type B Negative 08/11/25 Antibody Screen Negative 08/11/25 Hct, (36-47) 32.8 % L 08/12/25 Hgb, (11.27-16.99) 10.30 g/dL L 08/12/25 Rho(D) Type Rh negative 08/11/25 Plt Count, (157-399) 174 10^3/cmm 08/12/25 Hep Bs Antigen, (Nonreactive) Non-reactive 01/13/25 Hepatitis C Antibody, (Nonreactive) Non-reactive 04/04 Rubella IgG Antibody, (0.0-10.0) 94.8 IU/mL H 5 RPR, (Nonreactive) Nonreactive 01/13/25 HIV 1&2 Ab & HIV 1 Ag, (Non-Reactiv) Non-reactive 04/04 TSH, (0.27-4.20) 0.32 uIU/mL 01/13/25 C.trachomatis RNA (TMA), (NOT DETECTED) Not detected 12/31/23 N.gonorrhoeae RNA (TMA), (NOT DETECTED) Not detected 12/31/23 Chlamydia/GC Comment See note 12/31/23 Glucose 1 Hr 50 gm, (85-140) 79 mg/dL L 05/27/25 Ser , Semi-Qnt 72259.00 mIU/mL 11/28/23 HCG, Qual, (Negative) Positive H 12/10/24 Urine Opiates Screen, (Negative) Negative ng/mL 5 Ur Barbiturates Screen, (Negative) Negative ng/mL 01/13 Ur Phencyclidine Scrn, (Negative) Negative ng/mL Ur Amphetamines Screen, (Negative) Negative ng/mL 01/13 U Benzodiazepines Scrn, (Negative) Negative ng/mL 01/13 Urine Cocaine Screen, (Negative) Negative ng/mL 5 U Marijuana (THC) Screen, (Negative) Negative ng/mL 04/04 Micro Urine Specimen 01/13/25 Pap Smear Interpret See note 07/01/25 A&P Assessment and plan 1. : 40 w 0 d Admitted for induction of labor Fetus reassuring Plan Pitocin per protocol PDMP PDMP Reviewed: Last Reviewed 08/13/25 09:06 EDT by Dany Stapleton MD Attestations 2 Medical Necessity Statement*: patient at 40 w 0 d, admitted for induction of labor Coding Level of Care Code Acute Code for Chg Fwd Diagnoses Z34.90
[2025-08-11 13:13] LABS: Hematocrit 33.6 % (36-47); Hemoglobin 10.50 g/dL (11.27-16.99); Mean Corpuscular HGB Conc 31.3 g/dL (30-55); Mean Corpuscular Hemoglobin 23.6 pg (27-33); Mean Corpuscular Volume 75.5 fl (85-98); Nucleated Red Blood Cells % 0 %; Platelet Count 173 10^3/cmm (157-399); Red Blood Count 4.45 10^6/uL (3.85-5.65); White Blood Count 12.38 10^3/uL (3.29-11.43)
[2025-08-11 13:23] LABS: Slide Review Slide Review Perform
[2025-08-11] MEDS: fentaNYL 50 mcg/mL INJ 2mL IVP (21:07)
[2025-08-11] MEDS: ROPivacaine premix 200 MG/100 ML PREMIX 11 MG EPIDURAL (21:32)
--- NOTE | 2025-08-11 21:43 | ANES.PREANE2 ---
Pre-Anesthetic Assessment Height/Weight: Height 1.63 m Weight 101.151 kg Temp Pulse Resp BP Pulse Ox O2 Del Method 97.0 F L 109 H 18 183/90 95 Room Air 08/11/25 17:46 08/11/25 21:40 08/11/25 21:07 08/11/25 21:40 08/11/25 21:37 08/11/25 11:30 Preop Diagnosis: gravid uterus labor epidural Familial anesthetic complications: none Was Beta John taken within 24 hours: N/A Was Clonidine taken within 24 hours: N/A Last Intake: 12:00 Social No alcohol and No tobacco Exam alert, oriented x 3, clear to auscultation bilaterally and regular rate & rhythm Airway Cervical ROM: within normal limits Mallampati: Class II Dentition: full History/ROS No significant complaints Pulmonary None reported CV/HEM None reported None reported Hepatic None reported GI None reported Metabolic None reported Musc/skel Lower Back Pain Neuropsych None reported Anesthetic Plan ASA status: 2 Anesthesia: Regional (specify below) Other: epidural Medications/Allergies Home Medications ?Medication ?Instructions ?Recorded ?Confirmed ?Last Taken ?Type docosahexaenoic acid 200 mg 1 mg PO DAILY 12/10/24 08/11/25 Unknown History capsule ( DHA) ferrous sulfate 325 mg (65 mg 325 mg PO DAILY 06/03/25 08/11/25 Unknown History iron) tablet calcium carbonate (Tums) 200 mg PO BID PRN Heartburn 07/15/25 08/11/25 Unknown History famotidine 20 mg tablet (Pepcid) 20 mg PO DAILY 07/15/25 08/11/25 Unknown History ondansetron 4 mg disintegrating 4 mg PO Q8H PRN Nausea 07/21/25 08/11/25 Unknown History tablet Allergies Allergy/AdvReac Type Severity Reaction Status Date / Time No Known Allergies Allergy Verified 08/05/25 08:13 Current Medications Generic Name Dose Route Start Last Admin Trade Name Freq PRN Reason Stop Dose Admin Fentanyl 25 - 100 mcg 08/11/25 20:43 08/11/25 21:07 Fentanyl 50 Mcg/Ml Inj 2ml IVP 25 mcg Q1H PRN Administration SEVERE PAIN Dextrose/Lactated Ringer's 1,000 mls @ 125 mls/hr 08/11/25 13:00 08/11/25 21:37 Dextrose 5%-Lactated Ringers IV 125 mls/hr .Q8H AZALIA Administration Ropivacaine 200 mg in 100 mls @ 10 mls/hr 08/11/25 20:45 08/11/25 21:32 Naropin Premix EPIDURAL 11 mls/hr .Q10H AZALIA Administration PFSH Anesthesia Medical History Vaginal delivery Family History Grandmother Breast cancer Colon cancer Uterine cancer Heart disease Hypertension Stroke Mother Heart disease Hypertension Diabetes Father Heart disease Hypertension Social History Smoking and tobacco/nicotine status: never used tobacco/nicotine Female Reproductive History : 3 Data Anesthesia 08/11/25 12:17 Short CBC 08/11/25 Range/Units 12:17 WBC 12.38 H (3.29-11.43) 10^3/uL Hgb 10.50 L (11.27-16.99) g/dL Hct 33.6 L (36-47) % MCV 75.5 L (85-98) fl Plt Count 173 (157-399) 10^3/cmm Neut % (Auto) 76.7 % Neut # (Auto) 9.50 H (1.8-7.7) 10^3/uL Blood Bank 08/11/25 12:17 Blood Type B Negative Rho(D) Type Rh negative Antibody Screen Negative Anesthesia Procedures Epidural Time Out Performed: Yes Consents Signed: Procedure Consent Consent: from patient, risks and benefits reviewed and patient agrees to proceed Lumbar Level: L3-L4 Epidural position: sitting Epidural procedure: sterile prep of area, 1% lidocaine to numb the area, 18 g needle, negative for paresthesia passed, neg for paresthesia, test dose given, 1.5% xylocaine 1:200k epi, 0.2% Ropivacaine bolus ml (5), placed PCEA, no systemic response, sterile dressing applied, L.U.D. no apparent complications and 0.2% Ropiavacaine @ mls/hr (11) Additional Comments: JIGNESH at 6cm
--- NOTE | 2025-08-11 21:54 | P.ANESUD_ITS ---
Pre-Anesthetic Update Pre-Anesthetic Assessment: Date of Surgery/Procedure: 08/11/25 Preop Vianney gnosis: gravid uterus Labs Last 48hrs: Short CBC 08/11/25 Range/Units 12:17 WBC 12.38 H (3.29-11.43) 10^ 3/uL Hgb 10.50 L (11.27-16.99) g/ dL Hct 33.6 L (36-47) % MCV 75.5 L (85-98) fl Plt Count 173 (157-399) 10^3/c mm Neut % (Auto) 76.7 % Neut # (Auto) 9.50 H (1.8-7.7) 10^3/u L Blood Bank 08/11/25 12:17 Blood Type B Negative Rho(D) Type Rh negative Antibody Screen Negative Vitals: Temperature 97.0 F L 08/11/25 17:46 Pulse Rate 76 08/11/25 21:51 Respiratory Rate 18 08/11/25 21:07 Respiratory Effort Spontaneous 08/11/25 21:07 Respiratory Depth Normal 08/11/25 21:07 Respiratory Patter n Normal 08/11/25 21:07 Blood Pressure 150/82 08/11/25 21:51 Pulse Oximetry 100 08/11/25 21:47 Oxygen Delivery Me thod Room Air 08/11/25 11:30 Anesthesia Procedures Procedure Narrative: Patient rates pain 08/20, recently given 25mcg fentanyl IV, gave additional 75mcg epidural. States pain is subsiding slightly.
[2025-08-11] MEDS: oxytocin 30 UNIT/500 ML BAG 600 UNIT IV (22:22)
--- NOTE | 2025-08-11 22:25 | P.PCNOB_ITS ---
Delivery Note: Date of delivery: August 11, 2025 Pre-delivery diagnoses: 40-weeks gestation induction of labor Post-delivery diagnoses: 40-weeks gestation induction of labor vaginal delivery Procedure: induction of labor vaginal delivery Op report anesthesia: Epidural Delivering Physician: Dany Stapleton MD Estimated blood loss (mL): 300 Findings: , vigorous normal placenta and cord no episiotomy / lacerations EBL: 300 cc no complications Pre-Delivery Course: normal labor course fetus reassuring throughout Delivery: vaginal Post-Delivery Status: good History History History 3 Term 1 0 Miscarriages/Ectopic 1 Living Children 1 Past Pregnancies Del. Date GA/Weeks Outcome Route Wt Inf Gender Labor Lgth Comp. Anesth esia Location 07/30/24 40 live - full term Vaginal 7 lb 10 oz Male [facility] Delivery Date: 07/30/24 Last Updated by: DOTTY Hanks Dr. A&P Assessment and plan 1. Vaginal delivery: PDMP PDMP Reviewed: Not Reviewed Coding Level of Care Code Acute Code for Chg Fwd Diagnoses Vaginal delivery O80
[2025-08-11] MEDS: tranexamic acid 1,000 MG/100 ML PREMIX 600 MG IV (23:39)
[2025-08-12] VITALS (18 sets, daily range): BP systolic 112–135; BP diastolic 58–79; PULSE 71–96; RESP 16–17; TEMP 36.9–37.1; O2SAT 97–98
[2025-08-12] MEDS: methylergonovine 0.2 mg/mL INJ 1 mL IM (00:23)
[2025-08-12 11:28] LABS: Hematocrit 32.8 % (36-47); Hemoglobin 10.30 g/dL (11.27-16.99); Mean Corpuscular HGB Conc 31.4 g/dL (30-55); Mean Corpuscular Hemoglobin 24.2 pg (27-33); Mean Corpuscular Volume 77.0 fl (85-98); Platelet Count 174 10^3/cmm (157-399); Red Blood Count 4.26 10^6/uL (3.85-5.65); White Blood Count 15.88 10^3/uL (3.29-11.43)
--- NOTE | 2025-08-12 12:15 | P.PN_ITS ---
VETERANS REHABILITATION COUNSELOR Subjective 2 Subjective: Interval history: no c/o no headaches, dizziness, nausea, abdominal pain, bleeding normal lochia eating, voiding, ambulating well Labor: Station: +2 Amniotic Membrane Status: Ruptured Monitor Mode: External Contraction Pattern: Regular Vitals/I&O/Wt Last Vital Signs Temp 98.4 F 08/13/25 10:00 Pulse 83 08/13/25 10:00 Resp 16 08/13/25 10:00 BP 107/69 08/13/25 10:00 Pulse Ox 98 08/13/25 10:00 O2 Del Method Room Air 08/13/25 09:46 Physical Exam 2 Narrative: afebrile, VS normal comfortable, awake, alert Abd: soft, nontender. fundus firm Ext: no edema; nontender Urinary Catheter Management: Mohr Latex: Cath Placed During This Visit: yes, but has since been removed by the nurse Reason for Continuing Indwelling Catheter: Decision to DC Catheter Urinary Catheter Date of Insertion: 08/11/25 Urinary Catheter Time of Insertion: 22:06 Date Urinary Catheter Removed: 08/11/25 Time Urinary Catheter Discontinued: 22:14 Data 08/12/25 11:00 A&P Assessment and plan 1. Vaginal delivery: PPD #1 doing well normal course continue care PDMP PDMP Reviewed: Last Reviewed 08/13/25 09:06 EDT by Dany Stapleton MD Attestations 2 Medical Necessity Statement*: patient s/p vaginal delivery, for care Coding Level of Care Code Acute Code for Chg Fwd Diagnoses Vaginal delivery O80
--- NOTE | 2025-08-12 13:19 | ANE.PACU2 ---
Inpatient post-anesthesia follow up: Airway intact: Yes Vital signs: Temperature 98.4 F Pulse Rate 83 Respiratory Rate 16 Blood Pressure 107/69 Pulse Oximetry 98 Oxygen Delivery Me thod Room Air Oxygen Flow Rate Fraction of Inspir ed Oxygen Hydration adequate: Yes Nausea and vomiting: No Pain level: 1 Mental status: Baseline Epidural Start/End: Epidural Start Date: 08/11/25 Epidural Start Time: 21:16 Epidural End Date: 08/11/25 Epidural End Time: 23:26
--- NOTE | 2025-08-12 14:10 | P.PN_ITS ---
THERMOCOUPLE TESTER Subjective 2 Subjective: Interval history: no c/o no pain, bleeding eating, ambulating well Labor: Station: +2 Amniotic Membrane Status: Ruptured Monitor Mode: External Contraction Pattern: Regular Vitals/I&O/Wt Last Vital Signs Temp 98.4 F 08/12/25 21:22 Pulse 83 08/12/25 21:22 Resp 16 08/12/25 21:22 BP 126/77 08/12/25 21:22 Pulse Ox 98 08/12/25 21:22 O2 Del Method Room Air 08/12/25 21:22 08/12/25 08/12/25 08/13/25 14:59 22:59 06:59 Intake Total 100 / 100 Balance 100 / 100 Weight last 48 hrs Weight 223 lb Physical Exam 2 Narrative: General comfortable, awake, alert Lungs: clear Cor: RRR Abd: soft, nontender Ext: no edema Urinary Catheter Management: Mohr Latex: Cath Placed During This Visit: yes, but has since been removed by the nurse Reason for Continuing Indwelling Catheter: Decision to DC Catheter Urinary Catheter Date of Insertion: 08/11/25 Urinary Catheter Time of Insertion: 22:06 Date Urinary Catheter Removed: 08/11/25 Time Urinary Catheter Discontinued: 22:14 Data 08/12/25 11:00 A&P Assessment and plan 1. Vaginal delivery: PDMP PDMP Reviewed: Not Reviewed Attestations 2 Medical Necessity Statement*: patient s/p vaginal delivery Coding Level of Care Code Acute Code for Chg Fwd Diagnoses Vaginal delivery O80
[2025-08-13 05:03] VITALS: BP 121/81; PULSE 66; RESP 17; TEMP 36.7; O2SAT 97
[2025-08-13] MEDS: PRENATAL VIT NO.130/IRON/FOLIC 1 EACH TABLET PO (05:03)
[2025-08-13 09:46] VITALS: BP 107/69; PULSE 83; RESP 17; TEMP 36.9; O2SAT 98
[2025-08-13 10:00] VITALS: BP 107/69; PULSE 83; RESP 16; TEMP 36.9; O2SAT 98
--- NOTE | 2025-08-13 12:35 | PM.OBGYDC ---
Discharge Providers MOLD CUTTING MACHINE OPERATOR Date of Admission: 08/11/25 11:35 Date of Discharge: 08/13/25 Attending Provider at Admission: Dany Stapleton MD Attending Provider at Discharge: Dany Stapleton MD Consults: none Diagnoses at Discharge Discharge Diagnosis 1. Vaginal delivery: Reason for Visit Reason for Visit: IOL Information Peripartum Data: Delivery Method: Vaginal Physical Exam Urinary Catheter Management: Mohr Latex: Cath Placed During This Visit: yes, but has since been removed by the nurse Reason for Continuing Indwelling Catheter: Decision to DC Catheter Urinary Catheter Date of Insertion: 08/11/25 Urinary Catheter Time of Insertion: 22:06 Date Urinary Catheter Removed: 08/11/25 Time Urinary Catheter Discontinued: 22:14 History History History 3 Term 1 0 Miscarriages/Ectopic 1 Living Children 1 Past Pregnancies Del. Date GA/Weeks Outcome Route Wt Inf Gender Labor Lgth Comp. Anesthesia Location 07/30/24 40 live - full term Vaginal 7 lb 10 oz Male [facility] Delivery Date: 07/30/24 Last Updated by: DOTTY Hanks Dr. Discharge Data Studies Completed and Pending Laboratory Results WBC 15.88 10^3/uL (3.29-11.43) H 08/12/25 11:00 RBC 4.26 10^6/uL (3.85-5.65) 08/12/25 11:00 Hgb 10.30 g/dL (11.27-16.99) L 08/12/25 11:00 Hct 32.8 % (36-47) L 08/12/25 11:00 MCV 77.0 fl (85-98) L 08/12/25 11:00 MCH 24.2 pg (27-33) L 08/12/25 11:00 MCHC 31.4 g/dL (30-55) 08/12/25 11:00 RDW 15.8 % (12.1-15.1) H 08/12/25 11:00 Plt Count 174 10^3/cmm (157-399) 08/12/25 11:00 MPV 11.9 fL (7.4-10.4) H 08/12/25 11:00 Neut % (Auto) 76.7 % 08/11/25 12:17 Lymph % (Auto) 16.6 % 08/11/25 12:17 [place] % (Auto) 5.9 % 08/11/25 12:17 Eos % (Auto) 0.1 % 08/11/25 12:17 Baso % (Auto) 0.2 % 08/11/25 12:17 Neut # (Auto) 9.50 10^3/uL (1.8-7.7) H 08/11/25 12:17 Lymph # (Auto) 2.1 10^3/uL (0.8-4.8) 08/11/25 12:17 [place] # (Auto) 0.7 10^3/uL (0.2-0.9) 08/11/25 12:17 Eos # (Auto) 0.0 10^3/uL (0.0-0.8) 08/11/25 12:17 Baso # (Auto) 0.0 10^3/uL (0.0-0.1) 08/11/25 12:17 Nucleated RBC % (auto) 0 % 08/11/25 12:17 Nucleated RBCs # 0.0 /100WBC 08/11/25 12:17 Blood Type B Negative 08/11/25 12:17 Rho(D) Type Rh negative 08/11/25 12:17 Antibody Screen Negative 08/11/25 12:17 Vitals Last Vital Signs Temp 98.4 F 08/13/25 10:00 Pulse 83 08/13/25 10:00 Resp 16 08/13/25 10:00 BP 107/69 08/13/25 10:00 Pulse Ox 98 08/13/25 10:00 O2 Del Method Room Air 08/13/25 09:46 Results Labs OB ([facility]): Obstetrics US 07/01/25 Obstetrics US/Biophysical Profile 07/28/24 Blood Type B Negative 08/11/25 Antibody Screen Negative 08/11/25 Hct, (36-47) 32.8 % L 08/12/25 Hgb, (11.27-16.99) 10.30 g/dL L 08/12/25 Rho(D) Type Rh negative 08/11/25 Plt Count, (157-399) 174 10^3/cmm 08/12/25 Hep Bs Antigen, (Nonreactive) Non-reactive 01/13/25 Hepatitis C Antibody, (Nonreactive) Non-reactive 01/13/25 Rubella IgG Antibody, (0.0-10.0) 94.8 IU/mL H 01/13/25 RPR, (Nonreactive) Nonreactive 01/13/25 HIV 1&2 Ab & HIV 1 Ag, (Non-Reactiv) Non-reactive 01/13/25 TSH, (0.27-4.20) 0.32 uIU/mL 01/13/25 C.trachomatis RNA (TMA), (NOT DETECTED) Not detected 12/31/23 N.gonorrhoeae RNA (TMA), (NOT DETECTED) Not detected 12/31/23 Chlamydia/GC Comment See note 12/31/23 Glucose 1 Hr 50 gm, (85-140) 79 mg/dL L 05/27/25 Ser , Semi-Qnt 36017.00 mIU/mL 11/28/23 HCG, Qual, (Negative) Positive H 12/10/24 Urine Opiates Screen, (Negative) Negative ng/mL 01/13/25 Ur Barbiturates Screen, (Negative) Negative ng/mL 01/13/25 Ur Phencyclidine Scrn, (Negative) Negative ng/mL 01/13/25 Ur Amphetamines Screen, (Negative) Negative ng/mL 01/13/25 U Benzodiazepines Scrn, (Negative) Negative ng/mL 01/13/25 Urine Cocaine Screen, (Negative) Negative ng/mL 01/13/25 U Marijuana (THC) Screen, (Negative) Negative ng/mL 01/13/25 Micro Urine Specimen 01/13/25 Pap Smear Interpret See note 07/01/25 Discharge Plan Discharge Patient Disposition: Home Condition: Stable Prescriptions: New bromocriptine 5 mg capsule 5 mg PO BID Qty: 20 0RF Rx Instructions: must administer with a meal/food oxycodone-acetaminophen [Percocet] 5-325 mg tablet 1 tab PO Q12H PRN (Reason: pain) Qty: 14 0RF Continued DHA 200 mg capsule 1 mg PO DAILY ferrous sulfate 325 mg (65 mg iron) tablet 325 mg PO DAILY famotidine [Pepcid] 20 mg tablet 20 mg PO DAILY calcium carbonate [Tums] 200 mg calcium (500 mg) tablet,chewable 200 mg PO BID PRN (Reason: Heartburn) ondansetron 4 mg tablet,disintegrating 4 mg PO Q8H PRN (Reason: Nausea) Discharge Order = DC NOW: Discharge Order (Routine); Ordered 08/13/25 Ordered By: Dany Stapleton Referrals: Rosita Marie NP [Nurse Practitioner, MOLD CUTTING MACHINE OPERATOR] - 09/23/25 7:45 am Referral Note: * Your 6 week appointment is on 09/23/2025 at 7:45am Discharge Diet: Usual diet Discharge Activity: Increase activity as tolerated Patient Instructions: Depression (DC), Opioid Safety (DC), Preeclampsia and Eclampsia After Delivery (GEN), Hemorrhage (DC), OB Discharge Report, OB Food/Drug Interaction Guide, Opioid Safety, OB Home Care, OB Vaginal Deliveries - [facility], Patient Portal & Leslie Instructions, Abnormal Bleeding Coding Level of Care Code Acute Code for Chg Fwd Diagnoses Vaginal delivery O80
--- NOTE | 2025-08-13 12:55 | PM.OBGYDC ---
Discharge Providers [facility]TER Date of Admission: 08/11/25 11:35 Date of Discharge: 08/13/25 Attending Provider at Admission: Dany Stapleton MD Attending Provider at Discharge: Dany Stapleton MD Consults: none Primary FLAT CUTTER: Dany Stapleton MD Diagnoses at Discharge Discharge Diagnosis 1. Vaginal delivery: Details from hospital stay: 25 y.o. A1 at 40 w 0 d admitted for induction of labor patient progressed to complete dilatation fetus was reassurring throughout patient delivered vaginally without any complications There were no lacerations patient did well and was discharged to home on the second day Reason for Visit Reason for Visit: IOL Brief History: 25 y.o. A1 at 40 w 0 d admitted for induction of labor Hospital Course Hospital Course 25 y.o. A1 at 40 w 0 d admitted for induction of labor patient progressed to complete dilatation fetus was reassurring throughout patient delivered vaginally without any complications There were no lacerations patient did well and was discharged to home on the second day Information Peripartum Data: Infant Delivery Method: Vaginal Laceration description: None Episiotomy description: None complications: none Physical Exam Narrative: afebrile, VS normal comfortable, awake, alert Lungs: clear Cor: RRR Abd: soft, nontender. fundus firm Ext: no edema; nontender Urinary Catheter Management: Mohr Latex: Cath Placed During This Visit: yes, but has since been removed by the nurse Reason for Continuing Indwelling Catheter: Decision to DC Catheter Urinary Catheter Date of Insertion: 08/11/25 Urinary Catheter Time of Insertion: 22:06 Date Urinary Catheter Removed: 08/11/25 Time Urinary Catheter Discontinued: 22:14 History History History 3 Term 1 0 Miscarriages/Ectopic 1 Living Children 1 Past Pregnancies Del. Date GA/Weeks Outcome Route Wt Inf Gender Labor Lgth Comp. Anesthesia Location 07/30/24 40 live - full term Vaginal 7 lb 10 oz Male [facility] Delivery Date: 07/30/24 Last Updated by: DOTTY Hanks Dr. Discharge Data Studies Completed and Pending Laboratory Results WBC 15.88 10^3/uL (3.29-11.43) H 08/12/25 11:00 RBC 4.26 10^6/uL (3.85-5.65) 08/12/25 11:00 Hgb 10.30 g/dL (11.27-16.99) L 08/12/25 11:00 Hct 32.8 % (36-47) L 08/12/25 11:00 MCV 77.0 fl (85-98) L 08/12/25 11:00 MCH 24.2 pg (27-33) L 08/12/25 11:00 MCHC 31.4 g/dL (30-55) 08/12/25 11:00 RDW 15.8 % (12.1-15.1) H 08/12/25 11:00 Plt Count 174 10^3/cmm (157-399) 08/12/25 11:00 MPV 11.9 fL (7.4-10.4) H 08/12/25 11:00 Neut % (Auto) 76.7 % 08/11/25 12:17 Lymph % (Auto) 16.6 % 08/11/25 12:17 [place] % (Auto) 5.9 % 08/11/25 12:17 Eos % (Auto) 0.1 % 08/11/25 12:17 Baso % (Auto) 0.2 % 08/11/25 12:17 Neut # (Auto) 9.50 10^3/uL (1.8-7.7) H 08/11/25 12:17 Lymph # (Auto) 2.1 10^3/uL (0.8-4.8) 08/11/25 12:17 [place] # (Auto) 0.7 10^3/uL (0.2-0.9) 08/11/25 12:17 Eos # (Auto) 0.0 10^3/uL (0.0-0.8) 08/11/25 12:17 Baso # (Auto) 0.0 10^3/uL (0.0-0.1) 08/11/25 12:17 Nucleated RBC % (auto) 0 % 08/11/25 12:17 Nucleated RBCs # 0.0 /100WBC 08/11/25 12:17 Blood Type B Negative 08/11/25 12:17 Rho(D) Type Rh negative 08/11/25 12:17 Antibody Screen Negative 08/11/25 12:17 Procedures Performed induction of labor vaginal delivery Vitals Last Vital Signs Temp 98.4 F 08/13/25 10:00 Pulse 83 08/13/25 10:00 Resp 16 08/13/25 10:00 BP 107/69 08/13/25 10:00 Pulse Ox 98 08/13/25 10:00 O2 Del Method Room Air 08/13/25 09:46 Results Labs OB ([facility]): Obstetrics US 07/01/25 Obstetrics US/Biophysical Profile 07/28/24 Blood Type B Negative 08/11/25 Antibody Screen Negative 08/11/25 Hct, (36-47) 32.8 % L 08/12/25 Hgb, (11.27-16.99) 10.30 g/dL L 08/12/25 Rho(D) Type Rh negative 08/11/25 Plt Count, (157-399) 174 10^3/cmm 08/12/25 Hep Bs Antigen, (Nonreactive) Non-reactive 01/13/25 Hepatitis C Antibody, (Nonreactive) Non-reactive 01/13/25 Rubella IgG Antibody, (0.0-10.0) 94.8 IU/mL H 01/13/25 RPR, (Nonreactive) Nonreactive 01/13/25 HIV 1&2 Ab & HIV 1 Ag, (Non-Reactiv) Non-reactive 01/13/25 TSH, (0.27-4.20) 0.32 uIU/mL 01/13/25 C.trachomatis RNA (TMA), (NOT DETECTED) Not detected 12/31/23 N.gonorrhoeae RNA (TMA), (NOT DETECTED) Not detected 12/31/23 Chlamydia/GC Comment See note 12/31/23 Glucose 1 Hr 50 gm, (85-140) 79 mg/dL L 05/27/25 Ser , Semi-Qnt 54511.00 mIU/mL 11/28/23 HCG, Qual, (Negative) Positive H 12/10/24 Urine Opiates Screen, (Negative) Negative ng/mL 01/13/25 Ur Barbiturates Screen, (Negative) Negative ng/mL 01/13/25 Ur Phencyclidine Scrn, (Negative) Negative ng/mL 01/13/25 Ur Amphetamines Screen, (Negative) Negative ng/mL 01/13/25 U Benzodiazepines Scrn, (Negative) Negative ng/mL 01/13/25 Urine Cocaine Screen, (Negative) Negative ng/mL 01/13/25 U Marijuana (THC) Screen, (Negative) Negative ng/mL 01/13/25 Micro Urine Specimen 01/13/25 Pap Smear Interpret See note 07/01/25 Discharge Plan Discharge Patient Disposition: Home Condition: Stable Prescriptions: New bromocriptine 5 mg capsule 5 mg PO BID Qty: 20 0RF Rx Instructions: must administer with a meal/food oxycodone-acetaminophen [Percocet] 5-325 mg tablet 1 tab PO Q12H PRN (Reason: pain) Qty: 14 0RF Continued DHA 200 mg capsule 1 mg PO DAILY ferrous sulfate 325 mg (65 mg iron) tablet 325 mg PO DAILY famotidine [Pepcid] 20 mg tablet 20 mg PO DAILY calcium carbonate [Tums] 200 mg calcium (500 mg) tablet,chewable 200 mg PO BID PRN (Reason: Heartburn) ondansetron 4 mg tablet,disintegrating 4 mg PO Q8H PRN (Reason: Nausea) Discharge Order = DC NOW: Discharge Order (Routine); Ordered 08/13/25 Ordered By: Dany Stapleton Referrals: Rosita Marie NP [Nurse Practitioner, [facility]] - 09/23/25 7:45 am Referral Note: * Your 6 week appointment is on 09/23/2025 at 7:45am Discharge Diet: Usual diet Discharge Activity: Increase activity as tolerated Patient Instructions: Depression (DC), Opioid Safety (DC), Preeclampsia and Eclampsia After Delivery (GEN), Hemorrhage (DC), OB Discharge Report, OB Food/Drug Interaction Guide, Opioid Safety, OB Home Care, OB Vaginal Deliveries - [facility], Patient Portal & Leslie Instructions, Abnormal Bleeding Discharge Attestations FLAT CUTTER Time Spent in Discharge Care*: less than 30 min Coding Level of Care Code Acute Code for Chg Fwd Diagnoses Vaginal delivery O80
== END 2025-08-13 10:13 | disposition home or self-care (01) | DRG 807 ==
PROVIDERS: Admitting Provider Obstetrics & Gynecology; Visit Provider Obstetrics & Gynecology
DX: O48.0 Post-term pregnancy (principal); Z37.0 Single live birth; Z3A.40 40 weeks gestation of pregnancy; O99.02 Anemia complicating childbirth; D64.9 Anemia, unspecified
CPT/HCPCS: 51702; 59025; 59409; 85025; 85027; 86850; 86900; 96372; J2210; J2590; J2795; J3010; J7121; J9999